=== PATIENT | female | born 1965 ===

== ENCOUNTER 2018-06-24 07:54 | Emergency (ER) | payer SELFPAY ==
[~2018-06-24] VITALS: Ht 154.9 cm; Wt 72.1 kg
[2018-06-24] MEDS ORDERED: NS IV 1000 ML 1,000 ML IV ONE (08:17)
[2018-06-24] MEDS ORDERED: KETOROLAC 30 MG/ML VIAL ONE (08:23)
[2018-06-24 08:30] LABS: BILIRUBIN,URINE NEGATIVE (NEGATIVE); CLARITY,URINE CLEAR; COLOR,URINE YELLOW; GLUCOSE, URINE (UA) NEGATIVE (NEGATIVE); KETONES,URINE NEGATIVE (NEGATIVE); LEUKOCYTE ESTERASE ,URINE 3+ (NEGATIVE); NITRITE,URINE NEGATIVE (NEGATIVE); PH,URINE 6 (5-9); PROTEIN,URINE NEGATIVE (NEGATIVE); UROBILINOGEN,URINE NORMAL (NORMAL)
[2018-06-24] MEDS ORDERED: KETOROLAC 15 MG/ML VIAL IV ONE (08:30)
[2018-06-24 08:37] LABS: BASOPHILS # (AUTO) 0.1 10^3/uL (0.0-0.1); BASOPHILS % (AUTO) 2 % (0-10); EOSINOPHILS # (AUTO) 0.2 10^3/uL (0.0-0.3); EOSINOPHILS % (AUTO) 4 % (0-10); HEMATOCRIT 39 % (35-52); HEMOGLOBIN 12.9 G/DL (11.5-16.0); LYMPHOCYTES % (AUTO) 43 % (12-44); MEAN CORPUSCULAR HEMOGLOBIN 30 PG (25-34); MEAN CORPUSCULAR HGB CONC 33 G/DL (32-36); MEAN CORPUSCULAR VOLUME 90 FL (80-99); MEAN PLATELET VOLUME 10.4 FL (7.4-10.4); MONOCYTES # (AUTO) 0.5 X 10^3 (0.0-1.0); MONOCYTES % (AUTO) 10 % (0-12); NEUTROPHILS # (AUTO) 1.9 X 10^3 (1.8-7.8); NEUTROPHILS % (AUTO) 42 % (42-75); PLATELET COUNT 283 10^3/uL (130-400); RED CELL DISTRIBUTION WIDTH 12.9 % (10.0-14.5); WHITE BLOOD COUNT 4.7 10^3/uL (4.3-11.0)
--- NOTE | 2018-06-24 08:39 | ED Abdominal Pain ---
General Chief Complaint: Abdominal/GI Problems Stated Complaint: ABD PAIN Source of Information: Patient, [employer] Exam Limitations: Language Barrier (TARUN CHEN MD) History of Present Illness Date Seen by Provider: June 24, 2018 Time Seen by Provider: 08:05 Initial Comments Here with 8 months of left lower quadrant abdominal pain and back pain that is associated with increased belching. Pain hasn't really changed and she has not seen her doctor but she is concerned that she may have cancer because they wanted her checked for that previously. She is also diabetic but has been off her metformin for 2 months because she hasn't minimally get back to the clinic. Does report chills but denies nausea or vomiting. She does have chronic diarrhea. Denies blood in her urine or stool. Timing/Duration: Constant, Other (8 months) Severity/Quality: Aching Location: LLQ, Flank Radiation: Back Activities at Onset: None Modifying Factors: Improves With Resting Associated Symptoms: Back Pain; No Chest Pain, No Heartburn, No Nausea/Vomiting , No Shortness of Air, No Swelling/Mass in Abdomen, No Weakness (TARUN CHEN MD) Allergies and Home Medications Allergies Coded Allergies: No Known Drug Allergies (Unverified , 06/24/18) Home Medications Cephalexin 500 Mg Capsule, 500 MG PO TID Prescribed by: CHARIS HERNANDEZ on 06/24/18 1139 Patient Home Medication List Home Medication List Reviewed: Yes (TARUN CHEN MD) Review of Systems Review of Systems Constitutional: see HPI, chills; No fever EENTM: No Symptoms Reported Respiratory: No Symptoms Reported Cardiovascular: No Symptoms Reported Gastrointestinal: Abdominal Pain, Diarrhea; Denies Rectal Bleeding, Denies Vomiting Genitourinary: Denies Burning, Denies Pain (I think it was relocated I did today) Musculoskeletal: back pain; No muscle pain Skin: no symptoms reported Psychiatric/Neurological: No Symptoms Reported (TARUN CHEN MD) All Other Systems Reviewed Negative Unless Noted: Yes (TARUN CHEN MD) Past Nbklscj-Mibelr-Gbyjdc Hx Past Med/Social Hx: Reviewed Nursing Past Med/Soc Hx (TARUN CHEN MD) Patient Social History Alcohol Use: Denies Use Recreational Drug Use: No Smoking Status: Never a Smoker (TARUN CHEN MD) Past Medical History Surgeries: No Respiratory: No Cardiac: No Neurological: No : No (.) Genitourinary: No Gastrointestinal: Yes (chronic abdominal.) Musculoskeletal: No Endocrine: Yes Diabetes, Non-Insulin dep Cancer: No Psychosocial: No (TARUN CHEN MD) Family Medical History Reviewed Nursing Family Hx (TARUN CHEN MD) No Pertinent Family Hx (TARUN CHEN MD) Physical Exam Vital Signs Vital Signs - First Documented 06/24/18 08:00 Temp 98.2 Pulse 66 Resp 18 B/P (MAP) 166/99 (121) Pulse Ox 99 (CHARIS AKERS MD) Vital Signs Capillary Refill : (TRAUN CHEN MD) Height/Weight/BMI Height: '" Weight: lbs. oz. kg; BMI Method: General Appearance: WD/WN, no apparent distress HEENT: PERRL/EOMI, pharynx normal Neck: full range of motion, supple Respiratory: lungs clear, normal breath sounds Cardiovascular: regular rate, rhythm, no murmur Gastrointestinal: soft; No guarding, No rebound; tenderness (mild tenderness to left lower quadrant) Extremities: non-tender, normal inspection Back: normal inspection, no CVA tenderness, no vertebral tenderness Neurologic/Psychiatric: alert, oriented x 3 Skin: normal color, warm/dry (TARUN CHEN MD) Progress/Results/Core Measures Results/Orders Lab Results Laboratory Tests Test 06/24/18 08:20 06/24/18 08:24 Range/Units Urine Color YELLOW Urine Clarity CLEAR Urine pH 6 5-9 Urine Specific [place] 1.010 L 1.016-1.022 Urine Protein NEGATIVE NEGATIVE Urine Glucose (UA) NEGATIVE NEGATIVE Urine Ketones NEGATIVE NEGATIVE Urine Nitrite NEGATIVE NEGATIVE Urine Bilirubin NEGATIVE NEGATIVE Urine Urobilinogen NORMAL NORMAL MG/DL Urine Leukocyte Esterase 3+ H NEGATIVE Urine RBC (Auto) NEGATIVE NEGATIVE Urine RBC NONE /HPF Urine WBC 25-50 H /HPF Urine Squamous Epithelial Cells 10-25 H /HPF Urine Crystals NONE /LPF Urine Bacteria FEW H /HPF Urine Casts NONE /LPF Urine Mucus NEGATIVE /LPF Urine Culture Indicated YES White Blood Count 4.7 4.3-11.0 10^3/uL Red Blood Count 4.34 L 4.35-5.85 10^6/uL Hemoglobin 12.9 11.5-16.0 G/DL Hematocrit 39 35-52 % Mean Corpuscular Volume 90 80-99 FL Mean Corpuscular Hemoglobin 30 25-34 PG Mean Corpuscular Hemoglobin Concent 33 32-36 G/DL Red Cell Distribution Width 12.9 10.0-14.5 % Platelet Count 283 130-400 10^3/uL Mean Platelet Volume 10.4 7.4-10.4 FL Neutrophils (%) (Auto) 42 42-75 % Lymphocytes (%) (Auto) 43 12-44 % Monocytes (%) (Auto) 10 0-12 % Eosinophils (%) (Auto) 4 0-10 % Basophils (%) (Auto) 2 0-10 % Neutrophils # (Auto) 1.9 1.8-7.8 X 10^3 Lymphocytes # (Auto) 2.0 1.0-4.0 X 10^3 Monocytes # (Auto) 0.5 0.0-1.0 X 10^3 Eosinophils # (Auto) 0.2 0.0-0.3 10^3/uL Basophils # (Auto) 0.1 0.0-0.1 10^3/uL Sodium Level 141 135-145 MMOL/L Potassium Level 4.0 3.6-5.0 MMOL/L Chloride Level 108 H 98-107 MMOL/L Carbon Dioxide Level 26 21-32 MMOL/L Anion Gap 7 5-14 MMOL/L Blood Urea Nitrogen 12 7-18 MG/DL Creatinine 0.72 0.60-1.30 MG/DL Estimat Glomerular Filtration Rate > 60 BUN/Creatinine Ratio 17 Glucose Level 122 H 70-105 MG/DL Calcium Level 9.4 8.5-10.1 MG/DL Corrected Calcium 9.4 8.5-10.1 MG/DL Magnesium Level 2.3 1.8-2.4 MG/DL Total Bilirubin 0.4 0.1-1.0 MG/DL Aspartate Amino Transf (AST/SGOT) 25 5-34 U/L Alanine Aminotransferase (ALT/SGPT) 18 0-55 U/L Alkaline Phosphatase 120 40-136 U/L Total Protein 7.8 6.4-8.2 GM/DL Albumin 4.0 3.2-4.5 GM/DL Lipase 55 8-78 U/L (CHARIS AKERS MD) Medications Given in ED Current Medications Medications Dose Ordered Sig/Miryam Route Start Time Stop Time Status Last Admin Dose Admin Iohexol 100 ml ONCE ONCE IV 06/24/18 09:15 06/24/18 09:16 DC 06/24/18 09:42 100 ML Ketorolac Tromethamine 15 mg ONCE ONCE IV 06/24/18 08:30 06/24/18 08:31 DC 06/24/18 08:25 15 MG Sodium Chloride 10 ml NEEDED PRN IV 06/24/18 09:15 06/24/18 09:42 10 ML Sodium Chloride 1,000 ml @ 0 mls/hr Q0M ONCE IV 06/24/18 08:17 06/24/18 08:19 DC 06/24/18 08:25 1,000 MLS/HR (CHARIS AKERS MD) Vital Signs/I&O 06/24/18 08:00 Temp 98.2 Pulse 66 Resp 18 B/P (MAP) 166/99 (121) Pulse Ox 99 (CHARIS AKERS MD) Progress Progress Note : Progress Note Seen and evaluated. IV, labs, UA, normal saline 1 L bolus. History physical performed with interpretive services via phone. Anticipate CT scan. Toradol 15 mg IV. Monitor patient. (TARUN CHEN MD) Progress Note : Time: 11:44 Progress Note Labs were reviewed. CT was viewed by me and report reviewed. There were no acute abnormalities. Bladder did look somewhat distended but patient was able to urinate after the CT scan. Findings were reviewed with the patient via site interpreter on the language line. I did ask her about urinary retention. She denies any difficulty urinating or emptying her bladder. I discussed her concern about cancer. I reassured her there is no evidence of cancer on the CT scan, but I did stress to her that she should follow-up with a primary care provider to discuss this further. She stated something about an abnormality with bacteria around the anus that made her concern for cancer. This history was a little on clear based on the patient's explanation via the site interpreter. Urinary tract infection is suspected based on urinalysis. Patient was prescribed Keflex which was sent to the [facility] pharmacy. (CHARIS AKERS MD) Diagnostic Imaging Diagonstic Imaging: CT Plain Films/CT/US/NM/MRI: abdomen, pelvis Comments CT abdomen and pelvis viewed by me and report reviewed. See report below: NAME: ARIANNA ACKERMAN [facility] REC#: [id number] PT STATUS: REG ER : 1965 PHYSICIAN: TARUN CHEN MD ADMIT DATE: 06/24/18/ER Draft Date of Exam:06/24/18 CT ABDOMEN/PELVIS W PROCEDURE: CT abdomen and pelvis with contrast. TECHNIQUE: Multiple contiguous axial images were obtained through the abdomen and pelvis after administration of intravenous contrast. Auto Exposure Controls were utilized during the CT exam to meet ALARA standards for radiation dose reduction. INDICATION: Left-sided abdominal pain. COMPARISON: No prior studies are available for comparison. FINDINGS: The lung bases are clear. Liver and gallbladder are unremarkable. No biliary duct dilatation is seen. The pancreas and spleen are unremarkable. No adrenal mass is seen. Kidneys are unremarkable. Aorta is nonaneurysmal. Small and large bowel loops are normal in caliber. There is no obstruction. There is no ascites. There is moderate distention to the bladder. The uterus is unremarkable. No inflammatory changes in the abdomen are identified. The bony structures are nonacute. IMPRESSION: Essentially unremarkable CT of the abdomen and pelvis. No acute feature is detected. Dictated on workstation # [id number] Dict: 06/24/18 0952 Trans: 06/24/18 1003 GRACE [id number] Interpreted by: KARMA LOZANO MD (CHARIS AKERS MD) Departure Impression Primary Impression: Urinary tract infection Qualified Codes: N39.0 - Urinary tract infection, site not specified Additional Impression: Lower abdominal pain Disposition: 01 HOME, SELF-CARE Condition: Improved Departure-Patient Inst. Decision time for Depature: 11:30 (CHARIS AKERS MD) Patient Instructions: Acute Abdomen (Belly Pain), Urinary Tract Infection, Adult (DC) Add. Discharge Instructions: Complete your antibiotics as prescribed. Please follow-up with the primary care provider soon as possible. Return to the emergency room if you have worsening symptoms. Drink plenty of clear liquids. You may take Tylenol (acetaminophen) up to 1000 mg every 6 hours as needed for pain. All discharge instructions reviewed with patient and/or family. Voiced understanding. Scripts Cephalexin (Keflex) 500 Mg Capsule 500 MG PO TID, #21 CAP Prov: CHARIS AKERS MD 06/24/18 TARUN CHEN MD June 24, 2018 08:39 CHARIS AKERS MD June 24, 2018 11:40
[2018-06-24 08:41] LABS: WBC,URINE 25-50 /HPF
[2018-06-24 08:42] LABS: BACTERIA,URINE FEW /HPF
[2018-06-24 08:50] LABS: ALANINE AMINOTRANSFERASE 18 U/L (0-55); ALKALINE PHOSPHATASE 120 U/L (40-136); BILIRUBIN,TOTAL 0.4 MG/DL (0.1-1.0); BUN/CREATININE RATIO 17; CALCIUM 9.4 MG/DL (8.5-10.1); CARBON DIOXIDE 26 MMOL/L (21-32); CHLORIDE 108 MMOL/L (98-107); CREATININE SERUM 0.72 MG/DL (0.60-1.30); GFR ESTIMATED > 60; GLUCOSE 122 MG/DL (70-105); LIPASE 55 U/L (8-78); MAGNESIUM 2.3 MG/DL (1.8-2.4); SODIUM 141 MMOL/L (135-145); TOTAL PROTEIN 7.8 GM/DL (6.4-8.2)
[2018-06-24] MEDS ORDERED: IOHEXOL 350 MG/ML 100 ML (OMNIPAQUE 350) VIAL IV ONE (09:15)
[2018-06-24] MEDS ORDERED: CATHETER FLUSH 10 ML SYR IV PRN (09:15)
[2018-06-24] MEDS ORDERED: HOLD METFORMIN - RECEIVED CONTRAST 20 ML VIAL IV SCH (09:15)
--- NOTE | 2018-06-24 10:03 | Diagnostic Imaging Report ---
PROCEDURE: CT abdomen and pelvis with contrast. TECHNIQUE: Multiple contiguous axial images were obtained through the abdomen and pelvis after administration of intravenous contrast. Auto Exposure Controls were utilized during the CT exam to meet ALARA standards for radiation dose reduction. INDICATION: Left-sided abdominal pain. COMPARISON: No prior studies are available for comparison. FINDINGS: The lung bases are clear. Liver and gallbladder are unremarkable. No biliary duct dilatation is seen. The pancreas and spleen are unremarkable. No adrenal mass is seen. Kidneys are unremarkable. Aorta is nonaneurysmal. Small and large bowel loops are normal in caliber. There is no obstruction. There is no ascites. There is moderate distention to the bladder. The uterus is unremarkable. No inflammatory changes in the abdomen are identified. The bony structures are nonacute. IMPRESSION: Essentially unremarkable CT of the abdomen and pelvis. No acute feature is detected. Dictated by: Dictated on workstation # [id number]
--- NOTE | 2018-06-24 11:17 | NUR ---
DR ANDREWS ON LANGUAGE LINE TALKING TO PT
[2018-06-24] MEDS ORDERED: CEPH-507 PO (11:39)
[2018-06-24 11:49] VITALS: BP 166/99
== END 2018-06-24 11:50 | disposition home or self-care (01) ==
LOC: ER 07:55
DX: N39.0 Urinary tract infection, site not specified (principal); E11.9 Type 2 diabetes mellitus without complications; Z79.84 Long term (current) use of oral hypoglycemic drugs
CPT/HCPCS: 36415; 74177; 80053; 81000; 83690; 83735; 85025; 87077; 87088; 87186; 96361; 96374